=== PATIENT | female | born 1995 | race Caucasian/White ===

== ENCOUNTER 2021-02-17 10:03 | Outpatient (CLI) | payer OTHER, SELFPAY ==
--- NOTE | 2021-02-17 16:19 | WPDPFTINT ---
PFT Procedure Performed PFT Procedure Performed Spirometry with Pre/Post Bronchodilator Plethysmography (Lung Vol) Diffusing Cap (DLCO) Flow Vol Loop PFT Interpretation This is a pulmonary function test with pre and post-bronchodilator spirometry, plethysmography and diffusing capacity. The test was performed and results interpreted in accordance with the 2019 and 2005 ATS/ERS Task Force guidelines respectively using the Global Lung Function Initiative-2012 reference equations. Patient demonstrated good effort and cooperation. Reproducibility criteria were met. The quality of the pre bronchodilator spirometry maneuver was Grade A and post bronchodilator spirometry maneuver was Grade A. Findings: Spirometry: There is decreased maximal expiratory airflow at all lung volumes with concave expiratory flow tracing. Contour of the inspiratory flow tracing is normal. The pre bronchodilator FVC is 3.78 L, 111% predicted. The pre bronchodilator FEV1 is 2.29 L, 78% predicted. The FEV1: FVC ratio 61%. The post bronchodilator FVC is 3.89 L, representing a 3% increase. The post bronchodilator FEV1 is 2.61 L, representing a 14% increase. The post bronchodilator FEV1: FVC ratio 67%. Plethysmography: The total lung capacity is 5.41 L, 117% predicted. The functional residual capacity is 3.31 L, 134% predicted. The residual volume is 1.63 L, 141% predicted. Diffusing capacity: The absolute diffusion capacity is 22.9, 95% predicted. The diffusing capacity corrected for alveolar volume is 5.33, 104% predicted. Impression: There is a moderate obstructive abnormality with significant improvement after inhaling a single dose of albuterol. The lung volumes are normal. The diffusing capacity is normal. There are no prior studies for comparison
== END 2021-02-17 10:04 | disposition home or self-care (01) ==
LOC: ANHPFT 10:06
PROVIDERS: PCP Family Medicine; Visit Provider Internal Medicine Pulmonary Disease
DX: J45.909 Unspecified asthma, uncomplicated (principal); R94.2 Abnormal results of pulmonary function studies
CPT/HCPCS: 94060; 94726; 94729

== ENCOUNTER 2022-06-30 13:09 | Outpatient (CLI) | payer OTHER, SELFPAY ==
--- NOTE | ~2022-06-30 | XR_ITS ---
Clinical Indication: Left lower lobe wheezing PA and lateral views of the chest: Comparison: 04/16/2011 Findings: The lungs are clear, without evidence of focal consolidation or pleural effusion. Cardiome diastinal silhouette is within normal limits. Bones and soft tissues are unremarkable. Impression: Normal chest. Reviewed, dictated and finalized at [facility]. Impression: Normal chest.
== END 2022-06-30 13:10 | disposition home or self-care (01) ==
LOC: CHSIMG 13:10
PROVIDERS: PCP Family Medicine; Visit Provider Family Medicine
DX: J45.41 Moderate persistent asthma with (acute) exacerbation (principal)
CPT/HCPCS: 71046

== ENCOUNTER 2023-01-25 09:53 | Outpatient (CLI) | payer OTHER, SELFPAY ==
--- NOTE | ~2023-01-25 | XR_ITS ---
EXAMINATION: XR chest 2V 01/25/2023 10:23 INDICATION: Asthma. Cough. Shortness of breath. PROCEDURE: 2 view chest COMPARISON: 06/30/2022 FINDINGS: The lungs are clear. The cardiomediastinal silhouette is within normal limits. There are no pleural effusions. There is no pneumothorax suspected. IMPRESSION: 1: NO ACUTE CARDIOPULMONARY DISEASE. Reviewed, dictated and finalized at location [facility].
[2023-01-25 10:41] LABS: Influenza A QL RT-PCR Negative (Negative); Influenza B QL RT-PCR Negative (Negative); SARS-CoV-2 RNA PCR Negative (Negative)
[2023-01-25 10:42] LABS: RSV RNA, RT-PCR Negative (Negative)
== END 2023-01-25 09:54 | disposition home or self-care (01) ==
LOC: CHSLAB 09:55
PROVIDERS: PCP Family Medicine; Visit Provider Physician Assistant
DX: J45.909 Unspecified asthma, uncomplicated (principal); R05.8 Other specified cough
CPT/HCPCS: 71046; 87637

== ENCOUNTER 2023-12-14 08:07 | Outpatient (CLI) | payer OTHER, SELFPAY ==
--- NOTE | 2023-12-16 15:29 | WPDPFTINT ---
PFT Procedure Performed PFT Procedure Performed Spirometry with Pre/Post Bronchodilator Plethysmography (Lung Vol) Diffusing Cap (DLCO) Flow Vol Loop PFT Interpretation Lung volumes were measured with the body plethysmography method. Lung volumes are unremarkable. Spirometry showed normal expiratory flow rates and a diminished FEV1 to FVC ratio 64%, indicative of obstructive airway disease. Following administration of a bronchodilator there was no significant increase in expiratory flow rates. Lung diffusion capacity is within the normal range. The flow volume loop is unremarkable. Impression: Mild obstructive airway disease with no response to bronchodilators on this testing. Lung diffusion capacity within the normal range.
== END 2023-12-14 08:08 | disposition home or self-care (01) ==
LOC: ANHPFT 08:08
PROVIDERS: PCP Family Medicine; Visit Provider Internal Medicine Pulmonary Disease
DX: J45.909 Unspecified asthma, uncomplicated (principal); R94.2 Abnormal results of pulmonary function studies
CPT/HCPCS: 94060; 94726; 94729

== ENCOUNTER 2024-07-09 09:13 | Outpatient (RCR) | payer BC, SELFPAY ==
[2024-07-09 10:36] LABS: Hematocrit 34.4 % (37.0-47.0); Hemoglobin 11.1 g/dL (12.0-15.0)
[2024-07-09 10:47] LABS: Glucose 1 Hour PP 50gm Dose 93 mg/dL
[2024-07-09 11:25] LABS: HIV 1/2 Ab P24 Ag Result Negative (Negative)
[2024-07-09] MEDS: RHO(D) IMMUNE GLOBULIN 300 MCG/2 ML SYRINGE IM (13:33)
== END 2024-10-07 23:59 | disposition home or self-care (01) ==
LOC: ANHLAB 09:13
PROVIDERS: PCP Family Medicine; Visit Provider Obstetrics & Gynecology
DX: O36.0130 Maternal care for anti-D [Rh] antibodies, third trimester, not applicable or unspecified (principal); Z36.89 Encounter for other specified antenatal screening
CPT/HCPCS: 36415; 82947; 85014; 85018; 85461; 86703; 86850; 86900; 86901; 90384; 96372; G0432; J2790

== ENCOUNTER 2024-09-24 06:17 | Inpatient (IN) | payer BC, SELFPAY ==
[2024-09-24] VITALS (217 sets, daily range): BP systolic 87–157; BP diastolic 36–104; PULSE 62–191; RESP 12–20; TEMP 36.5–37.9; O2SAT 91–100; BMI 29.4
[2024-09-24 07:16] LABS: Basophils Percent Auto 0.2 % (0.2-1.2); Eosinophils Absolute Auto 0.3 K/mm3 (0-0.3); Eosinophils Percent Auto 3.3 % (0-4.4); Hematocrit 32.5 % (37.0-47.0); Hemoglobin 11.1 g/dL (12.0-15.0); Immature Granulocyte Absolute 0.03 K/mm3 (0.00-0.031); Immature Granulocyte Percent A 0.3 % (0-0.5); Lymphocytes Absolute Auto 1.76 K/mm3 (0.9-3.2); Lymphocytes Percent Auto 19.3 % (18.3-44.2); Mean Corpuscular HGB Conc 34.2 g/dl (32-36); Mean Corpuscular Hemoglobin 31.9 pg (26-34); Mean Corpuscular Volume 93.4 fl (80-100); Mean Platelet Volume 11.6 fl (7.4-10.4); Monocytes Absolute Auto 0.7 K/mm3 (0.1-0.6); Neutrophils Absolute Auto 6.3 K/mm3 (1.3-6.7); Neutrophils Percent Auto 68.9 % (45.5-73.1); Platelet Count Result 156 k/mm3 (150-375); Red Blood Count 3.48 M/mm3 (4.2-5.4); Red Cell Distribution Width 13.4 % (11.5-14.5); White Blood Count 9.1 K/mm3 (4.5-10.0)
--- NOTE | 2024-09-24 07:21 | LDADM ---
This patient, Mahnaz Beebe, was admitted to Labor/Delivery/Recovery 107 on 09/24/24 at 06:17. Plans for labor, pain management and were discussed with patient. Patient/family oriented to hospital policies and general routines including ID bracelet, bed and alarms, visiting hours, pain management, procedures, bathroom and other care routines, personal items, smoking policy, room service/diet and guest tray routines, security routines, and visiting hours. Patient/Family are encouraged to report perceived risks to care and to ask questions if they do not understand what they are told or what they should do. See OBIX for further documentation.
--- NOTE | 2024-09-24 07:32 | WPDHPUPDATE1 ---
History and Physical Update Update Date/Time: 09/24/24 07:32 29-year-old multiparous female at term presents for elective induction of labor. Artificial rupture membranes was performed. She is 2 cm, 50%, -2. Clear fluid. Active management of labor. Pitocin. Reassuring status. History and Physical has been reviewed, including an updated exam of the patient. There are NO changes in the patient's condition. Risks, benefits, and alternatives have been discussed and questions answered. Patient agrees to proceed with procedure.
[2024-09-24] MEDS: OXYTOCIN 30 UNITS/NS 500 ML 30 UNITS/500 ML BAG IV CONT (07:49)
[2024-09-24] MEDS: LACTATED RINGERS 1,000 ML 125 ML IV CONT ×4 (07:50→20:19)
[2024-09-24 07:58] LABS: Syphilis IgG/IgM Antibody Non-Reactive (Nonreactive)
--- NOTE | 2024-09-24 10:26 | WPDANESEPP ---
Anes - Eval Pre Procedure Procedure: Labor epidural Date/Time: 09/24/24 10:26 Surgeon: Shabana Preop Diagnosis: Abdominal pain with contractions Pre Op Diagnosis: IOL Patient Data Age: 29 Gender: F Height: 1.57 m Weight: 73 kg Last Vital Signs Pulse 97 09/24/24 10:16 BP 111/69 09/24/24 10:16 O2 Del Method Room Air 09/24/24 07:20 Allergies Allergy/AdvReac Type Severity Reaction Status Date / Time amoxicillin (From Augmentin) Allergy Itching Verified 12/07/23 09:59 clavulanic acid (From Allergy Itching Verified 12/07/23 09:59 Augmentin) latex AdvReac Severe Swelling Verified 12/07/23 09:59 Home Medications ?Medication ?Instructions ?Recorded ?Confirmed ?Type cetirizine 10 mg tablet 10 mg PO DAILY PRN 01/13/21 06/20/24 History albuterol sulfate 90 mcg/actuation 1 - 2 inh inhalation Q4-6H PRN 12/23/22 06/20/24 Rx aerosol inhaler (ProAir HFA) shortness of breath or wheezing #8.5 grams albuterol sulfate 2.5 mg/3 mL 2.5 mg inhalation Q6-8H PRN 02/07/23 06/20/24 History (0.083 %) solution for nebulization fluticasone 100 mcg-salmeterol 50 1 inh inhalation Q12H #60 ea 06/20/24 06/20/24 Rx mcg/dose blistr powdr for inhalation (Advair Diskus) Laboratory Tests 09/24/24 07:11 WBC 9.1 K/mm3 (4.5-10.0) RBC 3.48 L M/mm3 (4.2-5.4) Hgb 11.1 L g/dL (12.0-15.0) Hct 32.5 L % (37.0-47.0) MCV 93.4 fl (80-100) MCH 31.9 pg (26-34) MCHC 34.2 g/dl (32-36) RDW 13.4 % (11.5-14.5) Plt Count 156 k/mm3 (150-375) MPV 11.6 H fl (7.4-10.4) Immature Gran % (Auto) 0.3 % (0-0.5) Neut % (Auto) 68.9 % (45.5-73.1) Lymph % (Auto) 19.3 % (18.3-44.2) [place] % (Auto) 8.0 % (2.6-8.5) Eos % (Auto) 3.3 % (0-4.4) Baso % (Auto) 0.2 % (0.2-1.2) Lymph # (Auto) 1.76 K/mm3 (0.9-3.2) [place] # (Auto) 0.7 H K/mm3 (0.1-0.6) Eos # (Auto) 0.3 K/mm3 (0-0.3) Baso # (Auto) 0.0 K/mm3 (0.0-0.1) Abs Immat Gran (auto) 0.03 K/mm3 (0.00-0.031) Absolute Neuts (auto) 6.3 K/mm3 (1.3-6.7) Absolute Nucleated RBC 0.000 K/mm3 (0.0-0.012) Nucleated RBC % 0.0 % (0.0-0.2) Syphilis IgG/IgM Ab Non-reactive (Nonreactive) Blood Type B Negative Antibody Screen Positive Antibody Identification Pending Antigen Identification Pending CLARA, IgG Interpret TNP CLARA, Poly Interpret Negative CLARA, Complement Interp Pending : gestational age HCG: positive Patient hx anesthesia problems: none Family hx anesthesia problems: none Results Review: All pre-operative results and documents have been reviewed as part of the pre-operative evaluation. [facility] Past Medical History Medical History (Updated 09/24/24 @ 10:27 by Marlon Peralta Jr., CRNA) Eczema and not yet delivered Sinusitis Skin infection Unspecified asthma Family History Family History Father Chronic back pain Mother Hypertension Cardiac murmur Grandparent CAD (coronary artery disease) Social History Social History Smoking status: Never smoker Alcohol intake: current Do You Feel Safe in your Home?: No Lack of Transportation: No Lack of Food: Never True Current Housing: I Have Housing Concerned About Future Housing: No Difficulty Paying Gas/Electric Bills: No Difficulty Paying for Meds: No Currently Unemployed: No Education: Bachelor's Degree Difficulty w/ Childcare or Family Care: No Exam Day of Procedure 09/24/24 10:26
[2024-09-24] MEDS: SODIUM CHLORIDE 0.9% IV 300 ML 600 ML I-UTERINE (15:45)
[2024-09-24] MEDS: ONDANSETRON INJ 4 MG/2 ML VIAL IV PUSH (15:45)
[2024-09-24] MEDS: FAMOTIDINE 20 MG/2 ML VIAL IV PUSH (18:50)
--- NOTE | 2024-09-24 18:55 | P.PNOB_ITS ---
OB - PN: Subj Subjective Date/time seen: 09/24/24 18:55 29-year-old prime at in early labor after induction of labor. Persistent nonreassuring status from the onset of her induction. Her cervix is now swollen. She has made little progress at this time. It is clearly safer to move forward with delivery. Patient is agreed. She understands risks, benefits, and alternatives. She has completed the informed consent process is ready to proceed. OB - PN: Obj Data Labs 09/24/24 07:11 Labs: Laboratory Results - last 24 hr 09/24/24 07:11 WBC 9.1 RBC 3.48 L Hgb 11.1 L Hct 32.5 L MCV 93.4 MCH 31.9 MCHC 34.2 RDW 13.4 Plt Count 156 MPV 11.6 H Immature Gran % (Auto) 0.3 Neut % (Auto) 68.9 Lymph % (Auto) 19.3 [place] % (Auto) 8.0 Eos % (Auto) 3.3 Baso % (Auto) 0.2 Lymph # (Auto) 1.76 [place] # (Auto) 0.7 H Eos # (Auto) 0.3 Baso # (Auto) 0.0 Abs Immat Gran (auto) 0.03 Absolute Neuts (auto) 6.3 Absolute Nucleated RBC 0.000 Nucleated RBC % 0.0 Syphilis IgG/IgM Ab Non-reactive Blood Type B Negative Antibody Screen Positive Antibody Identification Passive Due to RH Imm Glob Antigen Identification TNP CLARA, IgG Interpret TNP CLARA, Poly Interpret Negative CLARA, Complement Interp Not Performed OB - PN A/P Assessment and Plan (1) Non-reassuring status, delivered, current hospitalization: Code(s): O75.89 - Other specified complications of labor and delivery Status: Acute Assessment and Plan: 29-year-old prime at in early labor after induction of labor. Persistent nonreassuring status from the onset of her induction. Her cervix is now swollen. She has made little progress at this time. It is clearly safer to move forward with delivery. Patient is agreed. She understands risks, benefits, and alternatives. She has completed the informed consent process is ready to proceed. Time Spent With Patient Time: Total time spent is greater than 50% in coordination of care (as documented) at patient's floor/unit and/or counseling patient:
[2024-09-24] MEDS: ceFAZolin 2 GM/D5W 50 ML 2 GM/50 ML BAG IVPB (19:05)
[2024-09-24] MEDS: AZITHROMYCIN 500 MG/NS 250 ML 500 MG/250 ML BAG 250 MG IVPB (19:05)
--- NOTE | 2024-09-24 19:46 | W.PM.OBCSD ---
OB - Delivery Note Procedure Delivery date: 09/24/24 Pre-op diagnosis: Non-Reassuring Status Post-op Diagnosis: Same Procedure Performed: Primary Surgeon: Eric Donald MD Anesthesia type: Epidural Description of Procedure/Findings: The patient was taken the operating room.? She was prepped and draped in dorsal supine position with a leftward tilt.? This was done after spinal anesthetic was applied.? A low-transverse skin incision was made and carried down till of the fascia with the knife.? The fascial incision was made with the knife.? The fascial incision was extended laterally with Sanders scissors.? The fascia was tented upward superiorly and inferiorly the rectus muscles were dissected off bluntly.? The rectus muscles were the midline.? The preperitoneal fat and peritoneum were dissected open bluntly at the superior aspect of the rectus muscles.? The peritoneal incision was extended superior and inferior with good position of bladder.? The uterine incision was made with a scalpel down to the level of the amniotic cavity.? The amniotic cavity was entered bluntly.? The infant was delivered.? The cord was clamped and cut and the infant was handed off to waiting pediatric staff.? Cord bloods were obtained.? The placenta was removed manually.? The uterus was exteriorized.? The uterus was cleared of all clots, debris and membranes.? The uterus was closed in 0 Vicryl running lock fashion.? An imbricating over a was placed along the incision line as well.? The uterus was returned to the abdomen.? The gutters were cleared of all clots and debris.? The fascia was closed with 0 Vicryl running fashion.? The subcutaneous tissue was irrigated pinpoint bleeders were cauterized.? The skin was closed with subcuticular absorbable rosie.? The skin incision line was covered with glue.? The patient tolerated the procedure well.? She has taken recovery room in stable condition.? Sponge lap and needle counts were correct x2.? Pathology: None sent Complications: No immediate complications Condition: Stable Disposition: PACU
[2024-09-24] MEDS: METOCLOPRAMIDE HCL INJ 10 MG/2 ML VIAL IV PUSH (20:15)
[2024-09-24] MEDS: OXYTOCIN 30 UNITS/NS 500 ML 30 UNITS/500 ML BAG 125 UNITS IV CONT (20:30)
[2024-09-24] MEDS: KETOROLAC 15 MG/ML VIAL (*BKC) IV PUSH (21:51)
--- NOTE | 2024-09-24 22:48 | OBPPTRN ---
Patient transferred to post room #286 via bed. Support person present. Oriented to unit, room, information board, rooming in, admission packet and security measures. Patient verbalizes understanding.
[2024-09-24] MEDS: LIDOCAINE 5% PATCH 1 PATCH TRANSDERM (23:02)
[2024-09-25] MEDS: ACETAMINOPHEN 500 MG TABLET 1000 MG PO ×4 (00:21→19:05)
[2024-09-25] MEDS: KETOROLAC 15 MG/ML VIAL (*BKC) IV PUSH ×3 (00:22→12:49)
[2024-09-25 00:45] VITALS: BP 118/74; PULSE 74; RESP 18; TEMP 37.2; O2SAT 100
[2024-09-25 04:00] VITALS: BP 112/60; PULSE 80; RESP 16; TEMP 37; O2SAT 99
[2024-09-25 06:06] LABS: Basophils Percent Auto 0.3 % (0.2-1.2); Eosinophils Absolute Auto 0.1 K/mm3 (0-0.3); Eosinophils Percent Auto 0.5 % (0-4.4); Hematocrit 29.7 % (37.0-47.0); Hemoglobin 9.9 g/dL (12.0-15.0); Immature Granulocyte Absolute 0.04 K/mm3 (0.00-0.031); Immature Granulocyte Percent A 0.3 % (0-0.5); Lymphocytes Absolute Auto 1.31 K/mm3 (0.9-3.2); Lymphocytes Percent Auto 10.1 % (18.3-44.2); Mean Corpuscular HGB Conc 33.3 g/dl (32-36); Mean Corpuscular Hemoglobin 31.9 pg (26-34); Mean Corpuscular Volume 95.8 fl (80-100); Mean Platelet Volume 11.5 fl (7.4-10.4); Monocytes Absolute Auto 1.1 K/mm3 (0.1-0.6); Monocytes Percent Auto 8.2 % (2.6-8.5); Neutrophils Absolute Auto 10.4 K/mm3 (1.3-6.7); Neutrophils Percent Auto 80.6 % (45.5-73.1); Platelet Count Result 142 k/mm3 (150-375); Red Cell Distribution Width 13.6 % (11.5-14.5); White Blood Count 12.9 K/mm3 (4.5-10.0)
[2024-09-25] MEDS: SIMETHICONE 80 MG TAB.CHEW PO ×3 (06:35→16:46)
[2024-09-25 08:00] VITALS: BP 107/69; PULSE 74; RESP 16; TEMP 36.4; O2SAT 100
--- NOTE | 2024-09-25 08:55 | PC.NURSE ---
Met with patient regarding needs. She states that they are getting the hang of things and is going well. Patient is encouraged to call out today for any needed assistance with such as latching, waking, and positioning. Patients agrees to call as needed.
[2024-09-25] MEDS: TETANUS,DIPHTHERIA,AC PERTUSSIS ADULT (0.5 ML) BOOSTRIX IM (10:27)
[2024-09-25] MEDS: POLYSACCHARIDE IRON COMPLEX 150 MG CAPSULE PO ×2 (10:29→16:46)
[2024-09-25] MEDS: DOCUSATE SODIUM 100 MG CAPSULE PO ×2 (10:29→16:46)
[2024-09-25] MEDS: MULTIVIT/MIN/PREN/FOL AC/IRON TABLET 1 TAB PO (10:29)
[2024-09-25 11:38] VITALS: BP 97/66; PULSE 96; RESP 17; TEMP 36.7; O2SAT 99
--- NOTE | 2024-09-25 12:14 | P.PNOB_ITS ---
OB - PN: Subj Subjective Date/time seen: 09/25/24 12:14 Patient comments: no complaints, pain well controlled, tolerating diet and flatus present OB - PN: Obj Data Labs 09/25/24 05:00 Labs: Laboratory Results - last 24 hr 09/25/24 05:00 WBC 12.9 H RBC 3.10 L Hgb 9.9 L Hct 29.7 L MCV 95.8 MCH 31.9 MCHC 33.3 RDW 13.6 Plt Count 142 L MPV 11.5 H Immature Gran % (Auto) 0.3 Neut % (Auto) 80.6 H Lymph % (Auto) 10.1 L [place] % (Auto) 8.2 Eos % (Auto) 0.5 Baso % (Auto) 0.3 Lymph # (Auto) 1.31 [place] # (Auto) 1.1 H Eos # (Auto) 0.1 Baso # (Auto) 0.0 Abs Immat Gran (auto) 0.04 H Absolute Neuts (auto) 10.4 H Absolute Nucleated RBC 0.000 Nucleated RBC % 0.0 OB - PN A/P Plan day: 1 Comments: Post Op LTCS - no problems, routine recovery Time Spent With Patient Time: Total time spent is greater than 50% in coordination of care (as documented) at patient's floor/unit and/or counseling patient: Exam 2 Const: General: cooperative, healthy appearing, comfortable and no acute distress Resp: Auscultation: no crackles, no rales, no rhonchi and no wheezes Cardio: Rhythm: regular rhythm Heart sounds: no click and no murmurs GI: Inspection: non-distended Auscultation: normal bowel sounds Extrem: General: normal to inspection, no pedal edema and no calf tenderness
--- NOTE | 2024-09-25 14:08 | WPDANLDPN2 ---
Anes-Prog Note L&D Date/Time: 09/25/24 14:08 Comfortable throughout: labor and section Neuraxial method: epidural Epidural/Spinal procedure site: clean & non-tender Neuro status: Neuro function grossly intact. Cardiovascular status: normal Respiratory status: normal Airway patency: baseline Mental status: baseline Post-Op hydration status: normal Vital Signs: Last Vital Signs Temp 98.1 F 09/25/24 11:38 Pulse 96 09/25/24 11:38 Resp 17 09/25/24 11:38 BP 97/66 L 09/25/24 11:38 Pulse Ox 99 09/25/24 11:38 O2 Del Method Room Air 09/24/24 21:53 Pain score (VAS): 0/10 I/O: Intake & Output 09/24/24 09/25/24 09/25/24 23:59 07:59 15:59 Intake Total 595.8 Output Total 2040 1100 700 Balance -1444.2 -1100 -700 Post-procedural complaints: none Patient feedback: Patient satisfied with anesthetic care.
--- NOTE | 2024-09-25 14:09 | WPDANLDNPN2 ---
Anes-Prog Note L&D-Neuraxial Date/Time: 09/25/24 14:09 Neuraxial medications: epidural PF morphine Opiod-related complaints: none Patient feedback: Patient satisfied with post-operative pain management.
[2024-09-25] MEDS: IBUPROFEN 600 MG TABLET PO (19:05)
[2024-09-25 20:00] VITALS: BP 104/67; PULSE 96; RESP 16; TEMP 36.3; O2SAT 99
[2024-09-26] MEDS: IBUPROFEN 600 MG TABLET PO ×4 (00:57→19:04)
[2024-09-26] MEDS: ACETAMINOPHEN 500 MG TABLET 1000 MG PO ×4 (00:57→19:04)
[2024-09-26] MEDS: LIDOCAINE 5% PATCH 1 PATCH TRANSDERM (00:58)
[2024-09-26] MEDS: POLYSACCHARIDE IRON COMPLEX 150 MG CAPSULE PO ×2 (07:31→16:06)
[2024-09-26] MEDS: SIMETHICONE 80 MG TAB.CHEW PO ×3 (07:32→16:06)
[2024-09-26] MEDS: DOCUSATE SODIUM 100 MG CAPSULE PO ×2 (07:32→16:06)
--- NOTE | 2024-09-26 08:09 | P.PNOB_ITS ---
OB - PN: Subj Subjective Date/time seen: 09/26/24 08:09 Interval history: pp day 2 passing flatus desires d/c home OB - PN: Obj Data Labs 09/25/24 05:00 OB - PN A/P Plan day: 2 Plan: routine care and discharge home Time Spent With Patient Time: Total time spent is greater than 50% in coordination of care (as documented) at patient's floor/unit and/or counseling patient: Review of Systems 2 Review of Systems: All systems reviewed & are unremarkable except as noted in HPI and below Exam 2 Const: General: cooperative, healthy appearing and comfortable Chest: Chest palpation & inspection: normal inspection of the chest Resp: Effort & Inspection: normal respiratory effort
--- NOTE | 2024-09-26 08:12 | P.DS_ITS ---
DS: Admitting Diagnosis Discharge Date 09/26/24 Admitting Diagnosis IOL DS: Discharge Diagnosis Discharge Diagnosis (1) delivery delivered: Code(s): O82 - Encounter for delivery without indication Status: Acute OB - DS: Summary OB Procedures : None OB Procedures Intrapartum: OB Procedures: : None Peripartum Data Procedures: Procedures Operation Date: 09/24/24 19:00 Actual Procedure Side Surgeon p Section Eric Donald MD Time Spent with Patient Time attestation: Total time spent providing and/or coordinating discharge services: Discharge Plan Discharge Attending physician on discharge: Eric Donald Discharging Clinician: Misa Marino Patient Disposition: Home Activity: pelvic rest Diet: regular Patient Instructions: Antibiotic Form Patient Language: Albanian Stand Alone Forms: General Discharge Information Follow-up/Referrals: Eric Donald MD [Physician] - 4 Weeks Discharge Medications: New oxycodone 5 mg Tablet 5 mg PO Q4H PRN (Reason: Pain Rated 4-6) Qty: 25 0RF Continued albuterol sulfate 2.5 mg /3 mL (0.083 %) solution for nebulization 2.5 mg inhalation Q6-8H PRN fluticasone propion-salmeterol [Advair Diskus] 100-50 mcg/dose blister with device 1 inh inhalation Q12H Qty: 60 6RF cetirizine 10 mg tablet 10 mg PO DAILY PRN albuterol sulfate [ProAir HFA] 90 mcg/actuation HFA aerosol inhaler 1 - 2 inh inhalation Q4-6H PRN (Reason: shortness of breath or wheezing) Qty: 8.5 2RF Date of admission: 09/24/24 06:17 Primary Care Provider: Ramon Love Admitting Provider: Eric Donald Attending physician on admission: Eric Donald Condition: Stable
[2024-09-26 08:25] VITALS: BP 109/61; PULSE 74; RESP 18; TEMP 36.9; O2SAT 98
--- NOTE | 2024-09-26 10:40 | PC.NURSE ---
Mother verbalizes she is able to independently latch with appropriate positioning and alignment. She denies any nipple discomfort and is responsively . Infant is currently meeting outcomes for weight, output, jaundice, blood sugar and feeding frequencies of 8-12 times in 24 hours. Mother declines any additional assistance or education at this time. Latch observed at this time - latch is appropriate and swallows were noted every 2-3 sucks. Mother is encouraged to call for assistance if her doesn?t latch, pain with latching, questions or concerns. Reported to the Primary RN.
[2024-09-26] MEDS: BISACODYL 10 MG SUPPOSITORY RECTAL (14:10)
[2024-09-26 20:30] VITALS: BP 113/89; PULSE 62; RESP 18; TEMP 36.9; O2SAT 100
[2024-09-26] MEDS: oxyCODONE HCL (*CRX) 5 MG TAB IR PO (20:30)
[2024-09-27] MEDS: ACETAMINOPHEN 500 MG TABLET 1000 MG PO ×2 (01:11→07:23)
[2024-09-27] MEDS: IBUPROFEN 600 MG TABLET PO ×2 (01:12→07:24)
[2024-09-27] MEDS: SIMETHICONE 80 MG TAB.CHEW PO (07:23)
[2024-09-27] MEDS: POLYSACCHARIDE IRON COMPLEX 150 MG CAPSULE PO (07:23)
[2024-09-27] MEDS: DOCUSATE SODIUM 100 MG CAPSULE PO (07:24)
[2024-09-27 07:55] VITALS: BP 113/76; PULSE 71; RESP 16; TEMP 37; O2SAT 100
--- NOTE | 2024-09-27 08:26 | P.PNOB_ITS ---
OB - PN: Subj Subjective Date/time seen: 09/27/24 08:26 Interval history: pp day 2 passing flatus desires d/c home Patient comments: no complaints, pain well controlled, incisional pain, tolerating diet and flatus present OB - PN: Obj Data Labs 09/25/24 05:00 OB - PN A/P Plan day: 3 Plan: routine care, discharge home and other Comments: Incision check in one week. Given precautions Time Spent With Patient Time: Total time spent is greater than 50% in coordination of care (as documented) at patient's floor/unit and/or counseling patient: Exam 2 Const: General: comfortable, no acute distress and alert Resp: Effort & Inspection: normal respiratory effort Auscultation: no crackles, no rales and no rhonchi Cardio: Rate: regular rate Heart sounds: no click, no murmurs and no rubs GI: Inspection: non-distended GI Palp: No Tenderness to palpation present (GI) Auscultation: normal bowel sounds Other: Incision - CDI Extrem: General: normal to inspection, no pedal edema and no calf tenderness
--- NOTE | 2024-09-27 08:27 | PM.OBDSVD ---
DS: Admitting Diagnosis Discharge Date 09/27/2024 Admitting Diagnosis Term DS: Discharge Diagnosis Discharge Diagnosis (1) delivery delivered: Code(s): O82 - Encounter for delivery without indication Status: Acute OB - DS: Summary OB Procedures : None OB Procedures Intrapartum: OB Procedures: : None Peripartum Data Procedures: Procedures Operation Date: 09/24/24 19:00 Actual Procedure Side Surgeon p Section Eric Donald MD Time Spent with Patient Time attestation: Total time spent providing and/or coordinating discharge services: Discharge Plan Discharge Attending physician on discharge: Eric Donald Discharging Clinician: Misa Marino Patient Disposition: Home Activity: pelvic rest Diet: regular Discharge Instructions: Patient Instructions: Antibiotic Form Patient Language: Puerto Rican Stand Alone Forms: General Discharge Information Follow-up/Referrals: Eric Donald MD [Physician] - 4 Weeks Discharge Medications: New oxycodone 5 mg Tablet 5 mg PO Q4H PRN (Reason: Pain Rated 4-6) Qty: 25 0RF Continued albuterol sulfate 2.5 mg /3 mL (0.083 %) solution for nebulization 2.5 mg inhalation Q6-8H PRN fluticasone propion-salmeterol [Advair Diskus] 100-50 mcg/dose blister with device 1 inh inhalation Q12H Qty: 60 6RF cetirizine 10 mg tablet 10 mg PO DAILY PRN albuterol sulfate [ProAir HFA] 90 mcg/actuation HFA aerosol inhaler 1 - 2 inh inhalation Q4-6H PRN (Reason: shortness of breath or wheezing) Qty: 8.5 2RF Date of admission: 09/24/24 06:17 Primary Care Provider: Ramon Love Admitting Provider: Eric Donald Attending physician on admission: Eric Donald Condition: Stable
[2024-09-27] MEDS: LIDOCAINE 5% PATCH 1 PATCH TRANSDERM (12:00)
[2024-09-29 14:49] VITALS: BP 112/69; PULSE 77; RESP 18; TEMP 36.8; O2SAT 98
--- NOTE | 2024-10-21 21:36 | P.HP_ITS ---
H&P: HPI History of Present Illness Date/Time: 10/21/24 21:36 Chief Complaint: term Narrative: patient is a 29-year-old 1 who presented for induction of labor. Fetus developed nonreassuring heart tones. Remote from delivery we agreed to proceed with delivery. She understands the risks, benefits, and alternatives. She has completed the informed consent process and is ready to proceed. The patient understands the details of the procedure. The procedure has been explained in detail. She understands the risks. She understands that injuries may occur that result in hospitalization, more surgery, and severe illness. She understands risk of hemorrhage and infection. She denies any chest pain or shortness of breath. She denies any nausea, vomiting, fever, chills. Review of Systems Review of Systems: All systems reviewed & are unremarkable except as noted in HPI and below Constitutional: Constitutional: Denies chills, Denies fatigue, Denies fever(s) and Denies weakness Eyes: Eyes: Denies blurry vision, Denies change in vision, Denies loss of peripheral vision, Denies loss of vision, Denies other visual disturbances and Denies eye pain ENT: Denies vertigo, Denies dizziness, Denies hearing loss, Denies mouth pain, Denies nasal obstruction, Denies neck mass and Denies neck pain Cardiovascular: Cardiovascular: Denies chest pain, Denies diaphoresis, Denies syncope, Denies leg edema and Denies dyspnea Respiratory: Respiratory: Denies chest congestion, Denies cough, Denies hemoptysis, Denies dyspnea and Denies wheezing Gastrointestinal: Gastrointestinal: Denies abdominal pain, Denies constipation, Denies diarrhea, Denies nausea and Denies vomiting Genitourinary: Genitourinary: Denies hematuria, Denies change in libido, Denies nocturia, Denies genital lesions, Denies flank pain and Denies urinary urgency Musculoskeletal: Musculoskeletal: Denies abnormal gait, Denies back pain, Denies myalgias, Denies arthralgias, Denies joint swelling, Denies muscle weakness and Denies neck pain Integumentary/Breasts: Skin/Breast: Denies swelling, Denies breast pain, Denies breast mass, Denies dry skin, Denies nipple discharge, Denies unusual bruising and Denies jaundice Neurologic: Denies Neuro-related abnormal movements, Denies Abnormal speech present, Denies abnormal gait, Denies behavioral changes, Denies confusion, Denies vertigo, Denies dizziness, Denies syncope, Denies loss of vision, Denies memory loss, Denies convulsions and Denies weakness Psychiatric: Psychiatric: Denies abnormal sleep pattern, Denies behavioral changes, Denies change in libido, Denies confusion, Denies depression, Denies anhedonia and Denies memory loss Endocrine: Endocrine: Reports no additional endocrine complaints, Denies change in libido and Denies fatigue Hematologic/Lymphatic: Hematologic/Lymphatic: Reports no additional hematologi c/lymphatic complaints Allergic/Immunologic: Allergic/Immunologic: Reports no additional allergic/immunologic complaints and Denies wheezing PMFSH Past Medical History Medical History (Updated 09/26/24 @ 08:12 by Misa Marino CNM) Eczema and not yet delivered Sinusitis Skin infection Unspecified asthma Family History Family History Father Chronic back pain Mother Hypertension Cardiac murmur Grandparent CAD (coronary artery disease) Social History Social History Smoking status: Never smoker Alcohol intake: current Do You Feel Safe in your Home?: No Lack of Transportation: No Lack of Food: Never True Current Housing: I Have Housing Concerned About Future Housing: No Difficulty Paying Gas/Electric Bills: No Difficulty Paying for Meds: No Currently Unemployed: No Education: Bachelor's Degree Difficulty w/ Childcare or Family Care: No Meds Home Medications and Allergies Home Medications ?Medication ?Instructions ?Recorded ?Confirmed ?Type cetirizine 10 mg tablet 10 mg PO DAILY PRN 01/13/21 06/20/24 History albuterol sulfate 90 mcg/actuation 1 - 2 inh inhalation Q4-6H PRN 12/23/22 06/20/24 Rx aerosol inhaler (ProAir HFA) shortness of breath or wheezing #8.5 grams albuterol sulfate 2.5 mg/3 mL 2.5 mg inhalation Q6-8H PRN 02/07/23 06/20/24 History (0.083 %) solution for nebulization fluticasone 100 mcg-salmeterol 50 1 inh inhalation Q12H #60 ea 06/20/24 06/20/24 Rx mcg/dose blistr powdr for inhalation (Advair Diskus) oxycodone 5 mg tablet 5 mg PO Q4H PRN Pain Rated 4-6 #25 09/26/24 Rx tabs Allergies Allergy/AdvReac Type Severity Reaction Status Date / Time amoxicillin (From Augmentin) Allergy Itching Verified 12/07/23 09:59 clavulanic acid (From Allergy Itching Verified 12/07/23 09:59 Augmentin) latex AdvReac Severe Swelling Verified 12/07/23 09:59 Exam Const: General: cooperative, healthy appearing, comfortable and no acute distress Orientation/consciousness: oriented to person, oriented to place and oriented to time HENMT: Head: normal to inspection Ears: external ears normal Face/Nose/Sinus: Normal external nose present and normal facial exam Face and sinus: normal facial exam Eyes: General: appearance normal, both eyes and all related structures Neck: Neck: normal visual inspection, trachea midline and supple Resp: Auscultation: clear to auscultation bilaterally, no crackles, no rales, no rhonchi and no wheezes Cardio: Rate: regular rate Rhythm: regular rhythm Heart sounds: no click, no murmurs and no rubs GI: GI Palp: No abdominal tenderness, No Soft to palpation, No Tenderness to palpation present (GI) and No Palpable mass present Auscultation: normal bowel sounds Skin: General skin exam: normal color and no rashes or lesions noted Neuro: General: oriented to person, oriented to place and oriented to time Extrem: General: normal to inspection, no joint enlargement, no clubbing, cyanosis or edema, no pedal edema and no calf tenderness Psych: Appearance: grossly normal Mental Status: mental status grossly normal Speech and movement: Normal speech and movement present Assessment and Plan Assessment and plan (1) Non-reassuring status, delivered, current hospitalization: Code(s): O75.89 - Other specified complications of labor and delivery Status: Acute Plan patient is a 29-year-old 1 who presented for induction of labor. Fetus developed nonreassuring heart tones. Remote from delivery we agreed to proceed with delivery. She understands the risks, benefits, and alternatives. She has completed the informed consent process and is ready to proceed.
== END 2024-09-27 12:15 | disposition home or self-care (01) | DRG 788 ==
LOC: ANHLDR 06:21 → ANHOB2 22:08
PROVIDERS: Admitting Provider Obstetrics & Gynecology; PCP Family Medicine; Visit Provider Obstetrics & Gynecology
PROC: 10D00Z1 Extraction of Products of Conception, Low, Open Approach (ICD-10-PCS; CPT 59514; principal; 2024-09-24 19:00)
DX: O76 Abnormality in fetal heart rate and rhythm complicating labor and delivery (principal); O62.0 Primary inadequate contractions; O69.81X0 Labor and delivery complicated by cord around neck, without compression, not applicable or unspecified; Z3A.39 39 weeks gestation of pregnancy; Z37.0 Single live birth
CPT/HCPCS: 36415; 85025; 86593; 86850; 86880; 86900; 86901; 86902; 90715; A9270; J0456; J0690; J1200; J1885; J2274; J2405; J2590; J2765; J2795; J7030; J7120

== ENCOUNTER 2025-03-09 05:06 | Emergency (ER) | payer SELFPAY ==
--- NOTE | ~2025-03-09 | CT_ITS ---
EXAMINATION: CT abdomen pelvis w con DATE: 03/09/2025 07:05 INDICATION: Right upper quadrant abdominal pain. Vomiting. Diarrhea. TECHNIQUE: Computed tomography (CT) of the abdomen and pelvis was performed with 100 mL Omnipaque 350 intravenous contrast. Automated exposure control and iterative reconstruction technique were employed. The dose-length product was 247.15 mGy-cm. COMPARISON: None. FINDINGS: The visualized portions of lung bases demonstrate mild atelectasis. No pleural effusion. The heart size is normal. No pericardial effusion. The liver and spleen are normal. The gallbladder is contracted. The pancreas, adrenal glands, and kidneys are normal. There are no dilated loops of bowel. The appendix is normal. There is physiologic fluid in the pelvis. There are no pathologically enlarged lymph nodes. The uterus demonstrates changes of prior section. There is a 1.5 cm uterine fibroid. There is mild lumbar spondylosis. IMPRESSION: 1. Small uterine fibroid. Reviewed, dictated and finalized at location E. NQUENT TAX COLLECTOR ASSISTANT IMPRESSION: 1. Small uterine fibroid.
[2025-03-09 05:08] VITALS: BP 111/74; PULSE 74; RESP 20; TEMP 36; O2SAT 100
--- NOTE | 2025-03-09 05:11 | ED_ITS ---
HPI - Abdominal Pain General Chief Complaint: Abdominal Pain Stated Complaint: abd pain Time Seen by Provider: 03/09/25 05:08 Source: patient and family Mode of arrival: ambulatory Limitations: no limitations History of Present Illness HPI narrative: Patient is a 29-year-old female with abdominal pain for the past few hours and associated nausea vomiting. She had some diarrhea earlier in the evening. Recent surgery a few months ago of . MD elicited complaint: abdominal pain Pertinent past history: none Onset (ago): hour(s) (Three) Pain Consistency: intermittent Location: epigastric, LUQ and RUQ Severity: moderate Pain scale (0-10): 6 Quality: stabbing and sharp Radiation: back (The shape goes from the front around to the back on either side) Migration to: no migration Exacerbating factors: nothing Relieving factors: nothing Context: confirms other (Patient having abdominal pain in the upper quadrants that radiates around to the back) Associated symptoms: nausea and vomiting Treatments prior to arrival: other (None) Related Data Home Medications ?Medication ?Instructions ?Recorded ?Confirmed ?Last Taken ?Type cetirizine 10 mg tablet 10 mg PO DAILY PRN 01/13/21 06/20/24 Unknown History albuterol sulfate 2.5 mg/3 mL 2.5 mg inhalation Q6-8H PRN 02/07/23 06/20/24 Unknown History (0.083 %) solution for nebulization Allergies Allergy/AdvReac Type Severity Reaction Status Date / Time amoxicillin (From Augmentin) Allergy Itching Verified 03/09/25 07:14 clavulanic acid (From Allergy Itching Verified 03/09/25 07:14 Augmentin) latex AdvReac Severe Swelling Verified 03/09/25 07:14 Review of Systems 2 Review of Systems: All systems reviewed & are unremarkable except as noted in HPI and below Constitutional: Constitutional: Reports no additional constitutional complaints Eyes: Eyes: Reports no additional eye complaints ENT: Reports system reviewed and no additional complaints, except as documented Cardiovascular: Cardiovascular: Reports no additional cardiovascular complaints Respiratory: Respiratory: Reports no additional respiratory complaints Gastrointestinal: Gastrointestinal: Reports no additional gastrointestinal complaints Genitourinary: Genitourinary: Reports no additional female genitourinary complaints Musculoskeletal: Musculoskeletal: Reports no additional musculoskeletal complaints Integumentary/Breasts: Skin/Breast: Reports system reviewed and no additional complaints, except as docu Neurologic: Reports system reviewed and no additional complaints, except as documented Psychiatric: Psychiatric: Reports no additional psychiatric complaints Endocrine: Endocrine: Reports no additional endocrine complaints Hematologic/Lymphatic: Hematologic/Lymphatic: Reports no additional hematologic/lymphatic complaints Allergic/Immunologic: Allergic/Immunologic: Reports no additional allergic/immunologic complaints PMFSH Past Medical History Medical History Eczema and not yet delivered Sinusitis Skin infection Unspecified asthma Family History Family History Father Chronic back pain Mother Hypertension Cardiac murmur Grandparent CAD (coronary artery disease) Social History Social History Smoking status: Never smoker Alcohol intake: current Lack of Transportation: No Lack of Food: Never True Current Housing: I Have Housing Concerned About Future Housing: No Difficulty Paying Gas/Electric Bills: No Difficulty Paying for Meds: No Currently Unemployed: No Education: Bachelor's Degree Difficulty w/ Childcare or Family Care: No Exam 2 Const: General: ill appearing Nutritional Appearance: well nourished O rientation/consciousness: patient oriented x3 Limitations: no limitations HENMT: Head: normal to inspection Ears: external ears normal F alchelle/Nose/Sinus: Normal external nose present Eyes: Conjunctivae: conjunctivae normal Pupils: Equal, round and reactive pupils present EOM: EOMs intact bilaterally Neck: Neck: normal visual inspection Chest: Chest palpation & inspection: normal inspection of the chest Resp: Effort & Inspection: normal respiratory effort and not labored A uscultation: clear to auscultation bilaterally and no crackles Cardio: Rate: regular rate Rhythm: regular rhythm Heart sounds: no murmurs GI: Inspection: non-distended GI Palp: Yes Soft to palpation and No Tenderness to palpation present (GI) Auscultation: normal bowel sounds : General: Yes bladder normal to palpation Back/Spine/Pelvis: Back: no CVA tenderness Skin: General skin exam: normal color Rashes: no rashes Wounds: no wounds Neuro: General: patient oriented x3, moves all extremities and no meningeal signs Cranial nerves: Yes Nystagmus not present Speech: normal speech G ait exam (Neuro): Normal gait present Extrem: General: normal to inspection, no clubbing, cyanosis or edema and no pedal edema Psych: Mental Status: mental status grossly normal Affect: normal affect Attitude: cooperative Course Vital Signs Vital signs: Vital Signs Temperature 36.0 C L 03/09/25 05:08 Pulse Rate 74 03/09/25 05:08 Respiratory Rate 20 03/09/25 05:08 Blood Pressure 111/74 03/09/25 05:08 Pulse Oximetry 100 03/09/25 05:08 Oxygen Delivery Room Air 03/09/25 05:08 Temperature 36.6 C 03/09/25 08:08 Pulse Rate 89 03/09/25 08:08 Respiratory Rate 17 03/09/25 08:08 Blood Pressure 101/67 03/09/25 08:08 Pulse Oximetry 99 03/09/25 08:08 Oxygen Delivery Room Air 03/09/25 08:08 [facility] Narrative Medical decision making narrative: Patient is a 29-year-old female with abdominal pain for the past few hours. She has nausea vomiting. We will treat the pain and the nausea vomiting at this time. We will do a GI workup to include a CT scan with contrast. Differential Diagnosis Differential Diagnosis: Cholecystitis, pancreatitis, gastroenteritis Lab Data [facility] Lab Attestation statement: I personally reviewed the patient's lab results. 03/09/25 05:41 03/09/25 05:41 Labs: Lab Results 03/09/25 03/09/25 Range/Units 05:24 05:41 WBC 8.8 (4.8-10.8) K/mm3 RBC 4.16 L (4.20-5.40) M/mm3 Hgb 12.7 (12.0-15.0) g/dL Hct 37.6 (35.0-49.0) % MCV 90.4 (78.0-102.0) fL MCH 30.5 (27.0-31.0) pg MCHC 33.8 (32-36) g/dL RDW 12.4 (11.6-14.4) % Plt Count 215 (150-420) K/mm3 MPV 10.7 (9.2-11.8) fl Immature Gran % (Auto) 0.1 H (0.0-0.0) % Neut % (Auto) 75.8 H (50.0-70.0) % Lymph % (Auto) 12.5 L (18.0-42.0) % Moody % (Auto) 2.8 (2.0-11.0) % Eos % (Auto) 8.7 H (1.0-6.0) % Baso % (Auto) 0.1 (0.0-1.0) % Lymph # (Auto) 1.10 (1.10-4.50) K/mm3 Moody # (Auto) 0.25 (0.10-0.90) K/mm3 Eos # (Auto) 0.77 H (0.02-0.50) K/mm3 Baso # (Auto) 0.01 (0.00-0.10) K/mm3 Abs Immat Gran (auto) 0.01 H (0.00-0.00) K/mm3 Absolute Neuts (auto) 6.67 (1.70-7.20) K/mm3 Absolute Nucleated RBC 0.00 (0.00-0.00) K/mm3 Nucleated RBC % 0.0 (0-0.0) % PT 10.8 (9.50-12.1) Seconds INR 1.0 APTT 23.1 L (23.9-30.70) Sec Sodium 142 (137-145) mmol/L Potassium 3.4 (3.4-5.0) mmol/L Chloride 108 H (98-107) mmol/L Carbon Dioxide 22 (22-30) mmol/L Anion Gap 12 (4-12) mmol/L BUN 11 (7-17) mg/dL Creatinine 0.73 (0.7-1.0) mg/dL Estim Creat Clear Calc 77 ml/min Estimated GFR > 60 (59 - ) Glucose 130 H (65-110) mg/dL Calculated Osmolality 295 (285-295) mOsm/kg Lactic Acid 1.7 (0.7-2.0) mmol/L Calcium 9.1 (8.4-10.2) mg/dL Total Bilirubin 1.6 H (0.2-1.3) mg/dL AST 78 H (14-36) U/L ALT 56 H (6-35) U/L Alkaline Phosphatase 79 (38-126) U/L Total Protein 6.7 (6.3-8.2) g/dL Albumin 4.5 (3.5-5.1) g/dL Lipase 88 (23-300) U/L Urine Color Yellow (Yellow) Urine Appearance Clear (Clear) Urine pH 5.0 (5.0-8.0) Ur Specific [place] >= 1.030 H (1.010-1.020) Urine Protein Negative (Negative) Urine Glucose (UA) Negative (Negative) Urine Ketones Negative (Negative) Ur Blood (Man) 3+ H (Negative) Urine Nitrate Negative (Negative) Urine Bilirubin Negative (Negative) Urine Urobilinogen 0.2 (0.2-1.0) mg/dL Leukocyte Esterase Rfl Trace H (Negative) TAURUS/UL Urine RBC 6-10 H (0-2) /hpf Urine WBC 4-6 H (0-3) /hpf Ur Squamous Epith Cells Moderate H (Few) /hpf Urine Bacteria 2+ (None) /hpf Urine Test Negative Imaging Data Attestation: I personally reviewed and interpreted this imaging study as follows: Radiologist's impression: ITS Impressions Abdomen/Pelvis CT 03/09/25 07:36 IMPRESSION: 1. Small uterine fibroid. Discharge Plan Discharge Clinical Impression: Gastroenteritis Abdominal pain Qualifiers: Abdominal location: unspecified location Qualified Code(s): R10.9 - Unspecified abdominal pain UTI (urinary tract infection) Qualifiers: Urinary tract infection type: site unspecified Hematuria presence: without hematuria Qualified Code(s): N39.0 - Urinary tract infection, site not specified Patient Disposition: Home Condition: Stable Instructions: Antibiotic Form, Gastritis (ED), Urinary Tract Infection in Women (ED), Abdominal Pain (ED) Additional Instructions: Advised follow-up with primary care physician within next 3 to 5 days and take medication as prescribed. Patient Language: Mohawk Prescriptions: New prochlorperazine maleate [Compazine] 5 mg tablet 5 mg PO Q8H PRN (Reason: nausea and vomiting) 1 Days Qty: 14 0RF oxycodone-acetaminophen [Percocet] 5-325 mg tablet 1 tablet PO Q6H PRN (Reason: pain) Qty: 20 0RF nitrofurantoin monohyd/m-cryst [Macrobid] 100 mg capsule 100 mg PO Q12H 7 Days Qty: 14 0RF Rx Instructions: must administer with a meal/food No Action albuterol sulfate 2.5 mg /3 mL (0.083 %) solution for nebulization 2.5 mg inhalation Q6-8H PRN fluticasone propion-salmeterol [Advair Diskus] 100-50 mcg/dose blister with device 1 inh inhalation Q12H Qty: 60 6RF cetirizine 10 mg tablet 10 mg PO DAILY PRN oxycodone 5 mg Tablet 5 mg PO Q4H PRN (Reason: Pain Rated 4-6) Qty: 25 0RF albuterol sulfate [ProAir HFA] 90 mcg/actuation HFA aerosol inhaler 1 - 2 inh inhalation Q4-6H PRN (Reason: shortness of breath or wheezing) Qty: 8.5 2RF Follow-up/Referrals: Ramon Love MD [Primary Care Provider, Internal Medicine] Time of Disposition: 07:56
--- OUTSIDE RECORDS SUMMARY | 2025-03-09 05:30 | XMS_ITS | Clinical Summary ---
Author Organization [facility] Address [address] [place] [address] Care Team Providers Care Assistant Customer Service Manager Name Role Phone Ramon Love MD Primary Care Provider [phone] Source Comments [facility],non-owned Affiliates and Associated Physician Practices is amultiple site organization consisting of ambulatory clinics and hospital sitesin [place], [place], [place] and [place]. This disclosure is being madepursuant to the Care Everywhere program and may not contain all information available regarding this patient. Last updated 17.[facility] Allergies No known active allergies Medications * Be aware that medications may not be up to date on this document. Alwaysverify current medications with the patient. predniSONE (DELTASONE) 20 MG tablet Take 20 mg by mouth once daily Active Albuterol Sulfate (VENTOLIN HFA IN) Active Fluticasone Propionate HFA (FLOVENT HFA IN) Act leda ALBUTEROL IN Active Social History Tobacco Use Types Packs/Day Years Used Date Smoking Tobacco: Never Smokeless Tobacco: Never Comments No Sex and Gender Information Value Date Recorded Sex Assigned at Not on file Legal Sex Female 9:28 PM CDT Gender Identity Not on file Sexual Orientation Not on file Last Filed Vital Signs Vital Sign Reading Time Taken Comments Blood Pressure 100/58 08/26/2017 10:28 AM CDT Pulse 81 08/26/2017 10:28 AM CDT Temperature 36.8 C (98.2 F) 08/26/2017 10:28 AM CDT Respiratory Rate 16 08/26/2017 10:28 AM CDT Oxygen Saturation 98% 08/26/2017 10:28 AM CDT Inhaled Oxygen Concentration - - Weight 52.2 kg (115 lb) 08/26/2017 10:28 AM CDT Height 157.5 cm (5' 2) 08/26/2017 10:28 AM CDT Body Mass Index 21.03 08/26/2017 10:28 AM CDT Plan of Treatment Health Maintenance Due Date Last Done Comments HIV SCREENING 2009 HEPATITIS C SCREENING 08/12/2012 DTAP/TDAP/TD VACCINES (1 - Tdap) 2013 HEPATITIS B VACCINE (1 of 3 - 19+ 3-dose series) 2013 HPV VACCINE (1 - 3-dose SCDM series) 2021 DEPRESSION SCREENING 04/04/2024 COVID-19 VACCINE (1 - 2024-2 6 season) 2024 INFLUENZA VACCINE (#1) 2024 ZOSTER VACCINE (1 of 2) 2044 HIB VACCINE Aged Out No longer eligi ble based on patient's age to complete this topic MENINGOCOCCAL (Group B) VACC INE SHARED DECISION-MAKING Aged Out No longer eligibl e based on patient's age to complete this topic MENINGOCOCCAL GROUPS A/C/Y/W VACCINE Aged Out No longer eligible b ased on patient's age to complete this topic PNEUMOCOCCAL VACCINE Aged Out No long er eligible based on patient's age to complete this topic Insurance [employer] Care Teams Assistant Customer Service Manager Relationship Specialty Start Date End Date Ramon Love MD [address] [place] [address] PCP - General Family Medicine 07/01/17
[2025-03-09] MEDS: ONDANSETRON INJ 4 MG/2 ML VIAL IV PUSH (05:33)
[2025-03-09] MEDS: MORPHINE SULFATE (*CRX) 4 MG/ML INJ IV PUSH (05:33)
[2025-03-09 06:03] LABS: Hematocrit 37.6 % (35.0-49.0); Hemoglobin 12.7 g/dL (12.0-15.0); Immature Granulocyte Percent A 0.1 % (0.0-0.0); Lymphocytes Absolute Auto 1.10 K/mm3 (1.10-4.50); Mean Corpuscular HGB Conc 33.8 g/dL (32-36); Mean Corpuscular Hemoglobin 30.5 pg (27.0-31.0); Mean Corpuscular Volume 90.4 fL (78.0-102.0); Nucleated Red Blood Cells Absolute Auto 0.00 K/mm3 (0.00-0.00); Nucleated Red Blood Cells Perc 0.0 % (0-0.0); Platelet Count Result 215 K/mm3 (150-420); Red Blood Count 4.16 M/mm3 (4.20-5.40); White Blood Count 8.8 K/mm3 (4.8-10.8)
[2025-03-09 06:09] LABS: Add Urine Microscopic? YES; Appearance Urine Clear (Clear); Glucose Urine UA Negative (Negative); Leukocyte Esterase Ur Trace LEU/UL (Negative); Nitrate Urine Negative (Negative); Specific Grav Ur >= 1.030 (1.010-1.020)
[2025-03-09 06:15] LABS: INR 1.0; Partial Thromboplastin Time 23.1 Sec (23.9-30.70); Prothrombin Time 10.8 Seconds (9.50-12.1)
[2025-03-09 06:18] LABS: Alanine Aminotransferase 56 U/L (6-35); Albumin Level 4.5 g/dL (3.5-5.1); Alkaline Phosphatase 79 U/L (38-126); Anion Gap 12 mmol/L (4-12); Aspartate Amino Transferase 78 U/L (14-36); Bilirubin,Total 1.6 mg/dL (0.2-1.3); Blood Urea Nitrogen 11 mg/dL (7-17); Calcium 9.1 mg/dL (8.4-10.2); Carbon Dioxide 22 mmol/L (22-30); Chloride 108 mmol/L (98-107); Estimated CRCL calculation 77 ml/min; Estimated Glomerular Filt Rate > 60; Glucose 130 mg/dL (65-110); Osmolality Calculated 295 mOsm/kg (285-295); Potassium 3.4 mmol/L (3.4-5.0); Sodium 142 mmol/L (137-145); Total Protein 6.7 g/dL (6.3-8.2)
[2025-03-09 06:20] LABS: Pregnancy On Board Control Positive
[2025-03-09 06:30] LABS: Lipase 88 U/L (23-300)
[2025-03-09] MEDS: HYDROmorphone HCL INJ (*CRX) 2 MG/ML VIAL 0.5 MG IV PUSH (06:37)
[2025-03-09] MEDS: PROMETHAZINE HCL 25 MG/ML AMPUL 12.5 MG IV PUSH (06:45)
[2025-03-09] MEDS: SODIUM CHLORIDE 0.9% IV 1,000 ML 999 ML IV CONT (06:46)
[2025-03-09 07:00] VITALS: BP 101/57; PULSE 89; RESP 16; O2SAT 98
[2025-03-09 07:30] VITALS: BP 104/61; PULSE 90; RESP 18; O2SAT 100
[2025-03-09 08:00] VITALS: BP 101/67; PULSE 89; RESP 17; O2SAT 99
[2025-03-09 08:08] VITALS: BP 101/67; PULSE 89; RESP 17; TEMP 36.6; O2SAT 99
== END 2025-03-09 08:08 | disposition home or self-care (01) ==
PROVIDERS: Emergency Medicine; Emergency Provider Emergency Medicine; PCP Family Medicine
DX: K52.9 Noninfective gastroenteritis and colitis, unspecified (principal); N39.0 Urinary tract infection, site not specified
CPT/HCPCS: 36415; 74177; 80053; 81001; 81025; 83605; 83690; 85025; 85610; 85730; 96361; 96374; 96375; 99284; J1171; J2270; J2405; J2550; J7030; Q9967

== ENCOUNTER 2025-03-14 07:23 | Outpatient (CLI) | payer BC, SELFPAY ==
--- NOTE | ~2025-03-14 | US_ITS ---
EXAMINATION: US abdomen complete, 03/14/2025 7:32 FINANCE INSURANCE MANAGER HISTORY: ABDOMINAL PAIN COMPARISON: None Technique: Braun-scale and color Doppler images were obtained. Findings: LIVER: Lliver contours intact, no lesions. Normal echogenicity. . GALLBLADDER/BILIARY: Unremarkable.No cholelithiais, wall thickening or pericholecystic fluid. No biliary dilatation. CBD 3 mm. [place] sign negative. PANCREAS: Pancreas limited by bowel gas. SPLEEN: Unremarkable, no splenomegaly. KIDNEYS: Right Kidney: Right kidney 9.4 x 4.0 x 4.1 cm, normal. Left Kidney: Left kidney 11.3 x 4.1 x 4 cm, normal. AORTA: Normal caliber aorta. IVC: Unremarkable. FREE FLUID: None. Impression: No acute abnormality. Reviewed, dictated and finalized at location P. NCE INSURANCE MANAGER Impression: No acute abnormality.
== END 2025-03-14 07:24 | disposition home or self-care (01) ==
PROVIDERS: PCP Family Medicine; Visit Provider Family Medicine
DX: R10.9 Unspecified abdominal pain (principal)
CPT/HCPCS: 76700